=== PATIENT | female | born 1970 | race African-American/Black ===

== ENCOUNTER 2020-12-08 15:16 | Inpatient (IN) | payer OTHER, MEDICAID ==
[~2020-12-08] VITALS: Ht 160 cm; Wt 70.5 kg
[~2020-12-08 15:16] MED LIST: ALBUPOW26; FLUT100M7
[2020-12-08 16:22] LABS: Basophils # (auto) 0.1 10 ^3/uL (0-0.2); Eosinophils # (auto) 0.6 10 ^3/uL (0-0.8)
[2020-12-08 16:24] LABS: Basophils % (auto) 1.1 % (0.0-2.0); Eosinophils % (auto) 10.5 % (0.0-7.0); Hematocrit 22.1 % (36.0-46.0); Lymphocytes # (auto) 2.3 10 ^3/uL (0.4-5.4); Lymphocytes % (auto) 41.4 % (10.0-50.0); Mean Corpuscular Hemoglobin 16.3 pg (28.0-32.0); Mean Corpuscular Hgb Conc. 28.8 g/dL (32.0-36.0); Mean Corpuscular Volume 56.8 fL (80.0-100.0); Monocytes # (auto) 0.4 10 ^3/uL (0-1.3); Monocytes % (auto) 6.9 % (0.0-12.0); Neutrophils # (auto) 2.2 10 ^3/uL (1.6-8.6); Neutrophils % (auto) 40.1 % (37.0-80.0); White Blood Cell 5.6 10^3/uL (4.4-10.8)
[2020-12-08 16:26] LABS: Albumin 3.3 g/dL (3.4-5.0); Calcium 8.7 mg/dL (8.5-10.1); Potassium 3.7 mmol/L (3.5-5.1)
[2020-12-08 16:29] LABS: BUN/Creatinine Ratio 12.4; Bilirubin, Total 0.2 mg/dL (0.2-1.0); Total Protein 7.7 g/dL (6.4-8.2)
[2020-12-08 16:45] LABS: Red Cell Distribution Width 23.6 % (11.8-14.3)
[2020-12-08 16:46] LABS: Hemoglobin 6.4 g/dL (12.2-16.2)
[2020-12-08] MEDS ORDERED: MORPHINE SULFATE INJECTION 2 MG/ML SYRG IV PRN ×3 (18:30→20:00)
[2020-12-08] MEDS ORDERED: NITROGLYCERIN 0.4 MG SL TAB SL PRN ×2 (18:30→20:00)
[2020-12-08] MEDS ORDERED: SODIUM CHLORIDE 0.9% 1,000 ML IV ONE (20:00)
[2020-12-08] MEDS ORDERED: HYDROcodone-ACET 5/325MG TAB PO PRN (20:00)
[2020-12-08] MEDS ORDERED: PANTOPRAZOLE 40 MG/10 ML VIAL INJ IV ONE (20:00)
[2020-12-08] MEDS ORDERED: BUDESONIDE (INHALATION) 0.5 MG/2 ML NEB NEB ONE (20:00)
[2020-12-08] MEDS ORDERED: hydrOXYzine 25 MG TAB or CAP PO PRN (20:00)
[2020-12-08] MEDS ORDERED: ALBUTEROL SULF 2.5 MG/0.5ML(0.5%) NEB SOLN NEB ONE (20:00)
[2020-12-08] MEDS ORDERED: PROMETHAZINE-DM 5 ML ORAL SYRUP PO PRN (20:00)
[2020-12-08] MEDS ORDERED: cefTRIAXone 1GM/50ML D5W 50 ML IV ONE (20:00)
[2020-12-08] MEDS ORDERED: DOCUSATE SOD 100 MG CAP PO PRN (20:00)
[2020-12-08] MEDS ORDERED: AZITHROMYCIN 500MG/ 250ML 250 ML IV ONE (20:00)
[2020-12-08] MEDS ORDERED: ONDANSETRON HCL 4 MG/2 ML VIAL IV PRN (20:00)
[2020-12-08] MEDS ORDERED: SODIUM FERR GLUC 62.5MG/5ML 125 MG in SODIUM CHL 0.9% 100 ML IV ONE (20:00)
[2020-12-08] MEDS ORDERED: SUCRALFATE 1 GM/10 ML ORAL SUSP PO ONE (20:00)
[2020-12-08] MEDS ORDERED: PROMETHAZINE-DM 5 ML ORAL SYRUP PO ONE (20:00)
[2020-12-08] MEDS ORDERED: IPRATROPIUM BROM 0.5 MG/2.5ML INH SOL NEB ONE (20:00)
[2020-12-08 20:57] LABS: % Iron Saturation 3.1 % (15-50)
[2020-12-08 21:00] LABS: Magnesium 2.2 mg/dL (1.6-2.6); Phosphorus 4.7 mg/dL (2.5-4.90)
[2020-12-08 21:14] VITALS: BP 99/52
[2020-12-08 21:29] VITALS: BP 105/62
[2020-12-08] MEDS: PANTOPRAZOLE 40 MG/10 ML VIAL INJ IV SCH (21:50)
[2020-12-08] MEDS ORDERED: IPRATROPIUM BROM 0.5 MG/2.5ML INH SOL NEB SCH (22:00)
[2020-12-08] MEDS: ALBUTEROL SULF 2.5 MG/0.5ML(0.5%) NEB SOLN NEB PRN (22:13)
[2020-12-08] MEDS: BUDESONIDE (INHALATION) 0.5 MG/2 ML NEB NEB SCH (22:13)
[2020-12-08] MEDS: IPRATROPIUM BROM 0.5 MG/2.5ML INH SOL NEB PRN (22:13)
[2020-12-09] VITALS (13 sets, daily range): BP systolic 94–120; BP diastolic 43–75
[2020-12-09] MEDS: SODIUM CHLORIDE 0.9% 1,000 ML IV SCH ×2 (00:49→09:59)
[2020-12-09] MEDS: SUCRALFATE 1 GM/10 ML ORAL SUSP PO SCH ×5 (00:50→21:31)
[2020-12-09 02:03] LABS: Urine WBC None Seen /hpf (0 - 5)
[2020-12-09 02:24] LABS: Alcohol, Urine < 3.0 mg/dL (0-10); Amphetamine Screen, Urine NEGATIVE (NEGATIVE); Barbiturate Scree,Urine NEGATIVE (NEGATIVE); Benzodiazephine Screen, Urine NEGATIVE (NEGATIVE); Cannabinoid Screen, Urine NEGATIVE (NEGATIVE); Cocaine Screen, Urine NEGATIVE (NEGATIVE); Opiate Scree,Urine NEGATIVE (NEGATIVE); Phencyclidine Screen, Urine NEGATIVE (NEGATIVE)
[2020-12-09 02:27] LABS: Urine Bacteria NONE SEEN /hpf (None Seen); Urine Blood Negative /uL (Negative)
[2020-12-09] MEDS: LORazepam 0.5 MG TAB PO PRN ×2 (03:51→23:13)
[2020-12-09] MEDS: ACETAMINOPHEN 325 MG TAB PO PRN (03:51)
[2020-12-09] MEDS: BUDESONIDE (INHALATION) 0.5 MG/2 ML NEB NEB SCH ×2 (05:59→19:27)
[2020-12-09] MEDS: IPRATROPIUM BROM 0.5 MG/2.5ML INH SOL NEB PRN (05:59)
[2020-12-09] MEDS: ALBUTEROL SULF 2.5 MG/0.5ML(0.5%) NEB SOLN NEB PRN (05:59)
[2020-12-09] MEDS ORDERED: LORA-622 PO (06:15)
[2020-12-09 09:22] LABS: Hemoglobin 8.4 g/dL (12.2-16.2); White Blood Cell 5.7 10^3/uL (4.4-10.8)
[2020-12-09 09:23] LABS: Hematocrit 27.3 % (36.0-46.0); Mean Corpuscular Hemoglobin 20.1 pg (28.0-32.0); Mean Corpuscular Hgb Conc. 30.6 g/dL (32.0-36.0); Mean Corpuscular Volume 65.6 fL (80.0-100.0); Red Blood Cells 4.16 10^6/uL (4.0-5.20)
[2020-12-09 09:30] LABS: Red Cell Distribution Width 31.8 % (11.8-14.3)
[2020-12-09 09:31] LABS: Basophils % (manual) 0 (0.0-2.0); Blast Cells 0; Metamyelocytes % 0; Myelocytes % 0; Promyelocytes % 0; Reactive Lymphocytes 0
[2020-12-09 09:37] LABS: INR 1.01 (0.9-1.15); Partial Thromboplastin Time 32.2 sec (23.6-33.0)
[2020-12-09 09:40] LABS: Albumin 2.6 g/dL (3.4-5.0); Anion Gap 3 (5-15); Blood Urea Nitrogen 10 mg/dL (7-18); Calcium 7.8 mg/dL (8.5-10.1); Carbon Dioxide 26 mmol/L (21-32); Chloride 111 mmol/L (98-107); Glucose 80 mg/dL (74-106); Magnesium 2.4 mg/dL (1.6-2.6); Potassium 3.7 mmol/L (3.5-5.1); Sodium 140 mmol/L (136-145)
[2020-12-09 09:43] LABS: Alanine Aminotransferase 14 U/L (13-56); Alkaline Phosphatase 63 U/L (45-117); Aspartate Aminotransferase 10 U/L (15-37); BUN/Creatinine Ratio 14.7; Bilirubin, Total 0.3 mg/dL (0.2-1.0); GFR African American 118 mL/min; GFR Non-African American 98 mL/min; Phosphorus 3.6 mg/dL (2.5-4.90); Total Protein 6.3 g/dL (6.4-8.2)
[2020-12-09] MEDS: cefTRIAXone 1GM/50ML D5W 50 ML IV SCH (09:59)
[2020-12-09] MEDS: PANTOPRAZOLE 40 MG/10 ML VIAL INJ IV SCH ×2 (10:00→21:31)
[2020-12-09 11:02] LABS: Band Neutrophils % (manual) 1; Eosinophils % (manual) 9 (0-7); Lymphocytes % (manual) 26 (10.0-50.0); Monocytes % (manual) 10 (0-12)
[2020-12-09] MEDS ORDERED: IRON SUCROSE COMPLEX 200 MG in SODIUM CHL 0.9% 100 ML IV SCH (12:00)
[2020-12-09] MEDS: AZITHROMYCIN 500MG/ 250ML 250 ML IV SCH (12:12)
[2020-12-09] MEDS: SODIUM FERR GLUC 62.5MG/5ML 125 MG in SODIUM CHL 0.9% 100 ML IV SCH (15:50)
[2020-12-10] MEDS: LORazepam 0.5 MG TAB PO PRN (02:16)
[2020-12-10] MEDS: IPRATROPIUM BROM 0.5 MG/2.5ML INH SOL NEB PRN (02:16)
[2020-12-10] MEDS: SODIUM CHLORIDE 0.9% 1,000 ML IV SCH ×2 (04:40→12:00)
[2020-12-10 05:00] VITALS: BP 127/78
[2020-12-10] MEDS: SUCRALFATE 1 GM/10 ML ORAL SUSP PO SCH ×2 (06:08→11:40)
[2020-12-10] MEDS: BUDESONIDE (INHALATION) 0.5 MG/2 ML NEB NEB SCH ×2 (06:16→10:50)
[2020-12-10] MEDS: ALBUTEROL SULF 2.5 MG/0.5ML(0.5%) NEB SOLN NEB PRN (06:16)
[2020-12-10 09:00] VITALS: BP 126/93
[2020-12-10] MEDS: PANTOPRAZOLE 40 MG/10 ML VIAL INJ IV SCH (09:06)
[2020-12-10] MEDS: cefTRIAXone 1GM/50ML D5W 50 ML IV SCH (09:06)
[2020-12-10] MEDS: AZITHROMYCIN 500MG/ 250ML 250 ML IV SCH (09:50)
[2020-12-10] MEDS: ACETAMINOPHEN 325 MG TAB PO PRN (10:32)
[2020-12-10 11:08] LABS: Hemoglobin 9.2 g/dL (12.2-16.2); Mean Corpuscular Hemoglobin 20.2 pg (28.0-32.0); Mean Corpuscular Hgb Conc. 30.7 g/dL (32.0-36.0); Mean Corpuscular Volume 65.8 fL (80.0-100.0); Red Blood Cells 4.56 10^6/uL (4.0-5.20); Red Cell Distribution Width 32.4 % (11.8-14.3); White Blood Cell 7.9 10^3/uL (4.4-10.8)
[2020-12-10 11:11] LABS: Basophils % (manual) 0 (0.0-2.0); Blast Cells 0; Metamyelocytes % 0; Myelocytes % 0; Promyelocytes % 0; Reactive Lymphocytes 0
[2020-12-10 13:07] LABS: Band Neutrophils % (manual) 1; Eosinophils % (manual) 10 (0-7); Lymphocytes % (manual) 18 (10.0-50.0); Monocytes % (manual) 7 (0-12)
[2020-12-10 13:09] VITALS: BP 107/61
[2020-12-10] MEDS: SODIUM FERR GLUC 62.5MG/5ML 125 MG in SODIUM CHL 0.9% 100 ML IV SCH (13:43)
== END 2020-12-10 15:30 | disposition home or self-care (01) | DRG 760 ==
LOC: ER 15:16 → TELE 18:21 → TELE-CENTR 12-09 04:32
PROVIDERS: ADMIT Hospitalist; ATTEND Hospitalist
PROC: 30233N1 Transfusion of Nonautologous Red Blood Cells into Peripheral Vein, Percutaneous Approach (ICD-10-PCS; principal; 2020-12-08)
DX: N92.0 Excessive and frequent menstruation with regular cycle (principal); J18.9 Pneumonia, unspecified organism; J96.20 Acute and chronic respiratory failure, unspecified whether with hypoxia or hypercapnia; J44.0 Chronic obstructive pulmonary disease with (acute) lower respiratory infection; J45.901 Unspecified asthma with (acute) exacerbation; N39.0 Urinary tract infection, site not specified; D25.9 Leiomyoma of uterus, unspecified; Z20.822 Contact with and (suspected) exposure to COVID-19; D50.0 Iron deficiency anemia secondary to blood loss (chronic); Z83.3 Family history of diabetes mellitus; E88.09 Other disorders of plasma-protein metabolism, not elsewhere classified; F12.90 Cannabis use, unspecified, uncomplicated; F41.9 Anxiety disorder, unspecified; Z82.49 Family history of ischemic heart disease and other diseases of the circulatory system; J20.9 Acute bronchitis, unspecified; K21.9 Gastro-esophageal reflux disease without esophagitis; K29.70 Gastritis, unspecified, without bleeding; M25.572 Pain in left ankle and joints of left foot; R42 Dizziness and giddiness; R53.81 Other malaise; Z77.22 Contact with and (suspected) exposure to environmental tobacco smoke (acute) (chronic)
CPT/HCPCS: 36415; 36430; 71045; 73610; 76856; 80053; 80307; 81001; 81025; 83036; 83540; 83550; 83735; 83880; 84100; 84443; 84484; 85007; 85025; 85027; 85610; 85730; 86850; 86900; 86901; 86920; 87040; 87086; 87426; 93306; 94640; 99291; C9113; G0378; J0696; J1756

== ENCOUNTER → 2021-05-13 | Emergency (ER) | payer OTHER, MEDICAID ==
[~2021-05-13] VITALS: Ht 157.5 cm; Wt 68.0 kg
[~2021-05-13] MED LIST changes: +LORA-622 PO
[2021-05-13 15:38] VITALS: BP 103/42
[2021-05-13 17:01] LABS: Hematocrit 27.2 % (36.0-46.0); Hemoglobin 8.6 g/dL (12.2-16.2); Mean Corpuscular Hgb Conc. 31.5 g/dL (32.0-36.0); Mean Corpuscular Volume 63.3 fL (80.0-100.0); White Blood Cell 5.8 10^3/uL (4.4-10.8)
[2021-05-13 17:05] LABS: Red Cell Distribution Width 22.7 % (11.8-14.3)
[2021-05-13 17:07] LABS: Basophils % (manual) 0 (0.0-2.0); Blast Cells 0; Metamyelocytes % 0; Myelocytes % 0; Promyelocytes % 0
[2021-05-13 17:10] LABS: Albumin 3.3 g/dL (3.4-5.0); Calcium 9.1 mg/dL (8.5-10.1); Potassium 4.2 mmol/L (3.5-5.1)
[2021-05-13 17:12] LABS: BUN/Creatinine Ratio 17.1
[2021-05-13 17:15] LABS: Bilirubin, Total 0.1 mg/dL (0.2-1.0); Total Protein 7.4 g/dL (6.4-8.2)
[2021-05-13 17:28] LABS: Band Neutrophils % (manual) 1; Eosinophils % (manual) 5 (0-7); Lymphocytes % (manual) 38 (10.0-50.0); Monocytes % (manual) 3 (0-12); Reactive Lymphocytes 3
== END | disposition left against medical advice (07) ==
LOC: ER 15:35
DX: N93.9 Abnormal uterine and vaginal bleeding, unspecified (principal); Z53.21 Procedure and treatment not carried out due to patient leaving prior to being seen by health care provider
CPT/HCPCS: 36415; 80053; 84702; 85007; 85027

== ENCOUNTER 2022-11-13 13:58 | Inpatient (IN) | payer OTHER, MEDICAID ==
[~2022-11-13] VITALS: Ht 160 cm; Wt 74.7 kg
[2022-11-13] VITALS (11 sets, daily range): BP systolic 101–118; BP diastolic 34–68; PULSE 74–90; RESP 12–20; TEMP 98–98.9; O2SAT 95–100
[2022-11-13 14:34] LABS: White Blood Cell 5.8 10^3/uL (4.4-10.8)
[2022-11-13 14:36] LABS: Hematocrit 17.8 % (36.0-46.0); Mean Corpuscular Hemoglobin 16.7 pg (28.0-32.0); Mean Corpuscular Hgb Conc. 29.4 g/dL (32.0-36.0); Mean Corpuscular Volume 56.8 fL (80.0-100.0); Red Blood Cells 3.13 10^6/uL (4.0-5.20)
[2022-11-13 14:40] LABS: Red Cell Distribution Width 23.2 % (11.8-14.3)
[2022-11-13 14:43] LABS: Hemoglobin 5.2 g/dL (12.2-16.2); INR 0.99 (0.9-1.15); Partial Thromboplastin Time 28.8 SEC (24.5-34.5); Prothrombin Time 10.4 sec (9.3-11.8)
[2022-11-13 14:44] LABS: Band Neutrophils % (manual) 0; Basophils % (manual) 0 (0.0-2.0); Blast Cells 0; Metamyelocytes % 0; Myelocytes % 0; Promyelocytes % 0; Reactive Lymphocytes 0
[2022-11-13 14:51] LABS: Albumin 4.3 g/dL (3.2-4.8); Alkaline Phosphatase 82 U/L (46-116); Anion Gap 4 (5-15); Aspartate Aminotransferase < 8 U/L (13-40); BUN/Creatinine Ratio 11.8 (10.0-20.0); Blood Urea Nitrogen 11 mg/dL (9-23); Calcium 8.7 mg/dL (8.7-10.4); Carbon Dioxide 27 mmol/L (20-30); Chloride 106 mmol/L (98-107); Glucose 93 mg/dL (74-106); Magnesium 1.9 mg/dL (1.6-2.6); Potassium 3.6 mmol/L (3.5-5.1); Sodium 137 mmol/L (136-145)
[2022-11-13 14:52] LABS: Bilirubin, Total 0.3 mg/dL (0.2-1.0); Total Protein 7.1 g/dL (5.7-8.2)
[2022-11-13 15:04] LABS: Alanine Aminotransferase < 9 U/L (7-40)
[2022-11-13 15:51] LABS: Eosinophils % (manual) 16 (0-7); Lymphocytes % (manual) 26 (10.0-50.0); Monocytes % (manual) 4 (0-12); Platelet Estimate Increased
[2022-11-13 15:52] LABS: Anisocytosis Slight; Hypochromia Marked; Ovalocytes FEW; Tear Drop Cells FEW
[2022-11-13 18:10] LABS: Urine Bacteria NONE SEEN /hpf (None Seen); Urine Blood 1+ /uL (Negative); Urine Clarity Clear (Clear); Urine Color Yellow (Yellow); Urine Mucus FEW (None Seen); Urine Protein, UAD TRACE (Negative); Urine Specific Gravity 1.028 (1.001-1.035); Urine Urobilinogen Normal (Negative); Urine WBC 2 /hpf (0 - 5)
[2022-11-13] MEDS ORDERED: NITROGLYCERIN 0.4 MG SL TAB SL PRN (20:30)
[2022-11-13] MEDS ORDERED: ONDANSETRON HCL 4 MG/2 ML VIAL IV PRN (20:30)
[2022-11-13] MEDS ORDERED: MORPHINE SULFATE INJ 2 MG/ml SYRG IV PRN (20:30)
[2022-11-13] MEDS ORDERED: ACETAMINOPHEN 325 MG TAB PO PRN (20:30)
[2022-11-13] MEDS ORDERED: hydrALAZINE HCL 10 MG TAB PO PRN (20:30)
[2022-11-13] MEDS: SODIUM CHLORIDE 0.9% 1,000 ML IV SCH (21:04)
[2022-11-13] MEDS: ATORVASTATIN 20 MG TAB PO SCH (23:40)
[2022-11-14] VITALS (12 sets, daily range): BP systolic 100–117; BP diastolic 42–62; PULSE 63–77; RESP 16–20; TEMP 98–98.8; O2SAT 98–99
[2022-11-14] MEDS: SODIUM CHLORIDE 0.9% 1,000 ML IV SCH ×2 (01:33→17:00)
[2022-11-14] MEDS: HYDROcodone-ACET 5/325MG TAB PO PRN ×2 (07:58→19:21)
[2022-11-14 08:32] LABS: Chloride 111 mmol/L (98-107); Potassium 4.3 mmol/L (3.5-5.1); Sodium 141 mmol/L (136-145)
[2022-11-14 08:33] LABS: Anion Gap 5 (5-15); Carbon Dioxide 25 mmol/L (20-30)
[2022-11-14 08:38] LABS: BUN/Creatinine Ratio 17.3 (10.0-20.0); Blood Urea Nitrogen 13 mg/dL (9-23); Glucose 96 mg/dL (74-106); Triglycerides 43 mg/dL (< 150)
[2022-11-14 08:39] LABS: LDL Cholesterol 87 mg/dL (< 100)
[2022-11-14 08:40] LABS: Cholesterol 154 mg/dL (< 200); HDL Cholesterol 57 mg/dL (40-59)
[2022-11-14 08:41] LABS: Hemoglobin 7.7 g/dL (12.2-16.2); Mean Corpuscular Hgb Conc. 30.9 g/dL (32.0-36.0); White Blood Cell 6.1 10^3/uL (4.4-10.8)
[2022-11-14 08:43] LABS: Hematocrit 24.9 % (36.0-46.0); Mean Corpuscular Hemoglobin 20.4 pg (28.0-32.0); Red Blood Cells 3.77 10^6/uL (4.0-5.20); Red Cell Distribution Width 31.4 % (11.8-14.3)
[2022-11-14 08:47] LABS: Band Neutrophils % (manual) 0; Basophils % (manual) 0 (0.0-2.0); Blast Cells 0; Metamyelocytes % 0; Myelocytes % 0; Promyelocytes % 0; Reactive Lymphocytes 0
[2022-11-14 09:51] LABS: Eosinophils % (manual) 20 (0-7); Lymphocytes % (manual) 13 (10.0-50.0); Monocytes % (manual) 5 (0-12)
[2022-11-14 09:52] LABS: Anisocytosis Marked; Hypochromia Marked; Platelet Estimate Increased
[2022-11-14 10:53] LABS: Hepatitis B Surface Antigen Negative (Negative)
[2022-11-14 11:14] LABS: Hepatitis C Antibody Negative (Negative)
[2022-11-14 12:06] LABS: Hematocrit 23.1 % (36.0-46.0); Hemoglobin 7.2 g/dL (12.2-16.2); Mean Corpuscular Hemoglobin 20.5 pg (28.0-32.0); Mean Corpuscular Hgb Conc. 31.1 g/dL (32.0-36.0); Red Blood Cells 3.49 10^6/uL (4.0-5.20); White Blood Cell 5.5 10^3/uL (4.4-10.8)
[2022-11-14 12:07] LABS: Red Cell Distribution Width 31.2 % (11.8-14.3)
[2022-11-14 12:09] LABS: Band Neutrophils % (manual) 0; Basophils % (manual) 0 (0.0-2.0); Blast Cells 0; Metamyelocytes % 0; Myelocytes % 0; Promyelocytes % 0; Reactive Lymphocytes 0
[2022-11-14 12:34] LABS: Eosinophils % (manual) 8 (0-7); Lymphocytes % (manual) 16 (10.0-50.0); Monocytes % (manual) 6 (0-12)
[2022-11-14 12:35] LABS: Anisocytosis Marked; Hypochromia Marked; Platelet Estimate Increased
[2022-11-14 12:42] LABS: Ovalocytes MANY
[2022-11-14] MEDS ORDERED: ONDANSETRON HCL 4 MG/2 ML VIAL IV PRN (13:15)
[2022-11-14] MEDS ORDERED: SODIUM CHLORIDE 0.9% 1,000 ML IV SCH (13:15)
[2022-11-14 16:34] LABS: Eosinophils # (auto) 0.9 10 ^3/uL (0-0.8); Eosinophils % (auto) 13.2 % (0.0-7.0); Hemoglobin 7.9 g/dL (12.2-16.2); Mean Corpuscular Hemoglobin 20.2 pg (28.0-32.0); Monocytes # (auto) 0.4 10 ^3/uL (0-1.3); Nucleated Red Blood Cells % 0.1 %
[2022-11-14 16:36] LABS: Basophils # (auto) 0 10 ^3/uL (0-0.2); Basophils % (auto) 0.6 % (0.0-2.0); Lymphocytes # (auto) 2.6 10 ^3/uL (0.4-5.4); Lymphocytes % (auto) 37.8 % (10.0-50.0); Mean Corpuscular Hgb Conc. 30.5 g/dL (32.0-36.0); Mean Corpuscular Volume 66.4 fL (80.0-100.0); Monocytes % (auto) 5.8 % (0.0-12.0); Neutrophils # (auto) 2.9 10 ^3/uL (1.6-8.6); Neutrophils % (auto) 42.6 % (37.0-80.0); Red Blood Cells 3.92 10^6/uL (4.0-5.20); White Blood Cell 6.9 10^3/uL (4.4-10.8)
[2022-11-14 16:38] LABS: Red Cell Distribution Width 30.9 % (11.8-14.3)
[2022-11-14 16:51] LABS: INR 0.99 (0.9-1.15); Partial Thromboplastin Time 30.1 SEC (24.5-34.5); Prothrombin Time 10.4 sec (9.3-11.8)
[2022-11-14 17:18] LABS: Platelet Estimate Increased
[2022-11-14 17:19] LABS: Anisocytosis Moderate; Hypochromia Marked
[2022-11-14] MEDS: ATORVASTATIN 20 MG TAB PO SCH (21:52)
[2022-11-15] VITALS (9 sets, daily range): BP systolic 99–120; BP diastolic 51–64; PULSE 55–73; RESP 16–19; TEMP 97.8–98.4; O2SAT 95–100
[2022-11-15 02:35] LABS: Hemoglobin 9.5 g/dL (12.2-16.2)
[2022-11-15 02:37] LABS: Hematocrit 30.8 % (36.0-46.0)
[2022-11-15] MEDS: SODIUM CHLORIDE 0.9% 1,000 ML IV SCH ×3 (03:12→15:30)
[2022-11-15] MEDS ORDERED: ACETAMINOPHEN 500 MG TAB PO ONE (06:00)
[2022-11-15] MEDS ORDERED: CELECOXIB 100 MG CAP PO ONE (06:00)
[2022-11-15] MEDS ORDERED: GABAPENTIN 300 MG CAP PO ONE (06:00)
[2022-11-15] MEDS ORDERED: ceFAZolin 2 GM/D5W100ml 100 ML IV ONE (07:00)
[2022-11-15] MEDS ORDERED: FAMOTIDINE (10MG/ML) 2ML VL IV ONE ×2 (07:20→07:30)
[2022-11-15] MEDS ORDERED: ceFAZolin 1GM/50ML 100 ML IV ONE (07:25)
[2022-11-15] MEDS ORDERED: HYDR-4902 PO (07:26)
[2022-11-15] MEDS ORDERED: DOCU-94 PO (07:26)
[2022-11-15] MEDS ORDERED: IBUP-1455 PO (07:26)
[2022-11-15] MEDS ORDERED: MIDAZOLAM HCL 2MG/2ML 2ml VIAL (1mg/ml) ONE (07:30)
[2022-11-15] MEDS ORDERED: ONDANSETRON HCL 4 MG/2 ML VIAL IV PRN ×2 (07:30→10:15)
[2022-11-15] MEDS ORDERED: MORPHINE SULFATE INJ 2 MG/ml SYRG IV PRN (07:30)
[2022-11-15] MEDS ORDERED: fentaNYL CITRATE 100 MCG/2 ML VL ONE (07:30)
[2022-11-15] MEDS ORDERED: NITROGLYCERIN 0.4 MG SL TAB SL PRN (07:30)
[2022-11-15] MEDS ORDERED: HYDROmorphone HCL 2 MG/ML VL/or syr ONE (07:30)
[2022-11-15] MEDS ORDERED: ACETAMINOPHEN 500 MG TAB PO PRN (07:30)
[2022-11-15] MEDS ORDERED: ePHEDrine SULFATE 50 MG/ML AMP ONE (07:31)
[2022-11-15] MEDS ORDERED: HYDROCORTISONE SOD SUCC 100 MG/2ML INJ VIAL ONE (07:31)
[2022-11-15] MEDS ORDERED: LIDOCAINE 2% (LOCAL ANESTH.) PF 5ml SDV ONE (07:31)
[2022-11-15] MEDS ORDERED: KETOROLAC TROMETH 30 MG/ML 1ML VIAL ONE (07:31)
[2022-11-15] MEDS ORDERED: GLYCOPYRROLATE 0.2 MG/ML 1ML VIAL ONE (07:31)
[2022-11-15] MEDS ORDERED: ROCURONIUM 10MG/ML 10ML VIAL IV ONE (07:31)
[2022-11-15] MEDS ORDERED: ONDANSETRON HCL 4 MG/2 ML VIAL ONE (07:31)
[2022-11-15] MEDS ORDERED: MEPERIDINE HCL (25 MG/ML) 1ML VIAL ONE (09:43)
[2022-11-15] MEDS ORDERED: HYDROmorphone HCL 2 MG/ML VL/or syr IV PRN (10:15)
[2022-11-15] MEDS: ACYCLOVIR 400 MG TAB PO SCH ×3 (11:00→22:10)
[2022-11-15] MEDS: HYDROmorphone HCL 2 MG/ML VL/or syr IV PRN ×2 (14:18→20:30)
[2022-11-15 14:27] LABS: Eosinophils # (auto) 0 10 ^3/uL (0-0.8); Monocytes # (auto) 0.7 10 ^3/uL (0-1.3); Monocytes % (auto) 3.8 % (0.0-12.0)
[2022-11-15 14:28] LABS: Basophils # (auto) 0.1 10 ^3/uL (0-0.2); Basophils % (auto) 0.4 % (0.0-2.0); Eosinophils % (auto) 0.1 % (0.0-7.0); Hematocrit 31.2 % (36.0-46.0); Hemoglobin 9.5 g/dL (12.2-16.2); Lymphocytes # (auto) 1.4 10 ^3/uL (0.4-5.4); Lymphocytes % (auto) 7.7 % (10.0-50.0); Mean Corpuscular Hemoglobin 21.7 pg (28.0-32.0); Mean Corpuscular Hgb Conc. 30.6 g/dL (32.0-36.0); Mean Corpuscular Volume 70.8 fL (80.0-100.0); Neutrophils # (auto) 15.5 10 ^3/uL (1.6-8.6); White Blood Cell 17.6 10^3/uL (4.4-10.8)
[2022-11-15] MEDS: ceFAZolin 1GM/50ML 50 ML IV SCH ×2 (14:28→22:09)
[2022-11-15 14:32] LABS: Red Cell Distribution Width 30.7 % (11.8-14.3)
[2022-11-15] MEDS ORDERED: KETAMINE 50mg/ML 10ml Vial (500mg/10ml) IV ONE (14:39)
[2022-11-15 14:48] LABS: Alanine Aminotransferase 12 U/L (7-40); Albumin 3.5 g/dL (3.2-4.8); Alkaline Phosphatase 61 U/L (46-116); Anion Gap 7 (5-15); Aspartate Aminotransferase 13 U/L (13-40); BUN/Creatinine Ratio 14.3 (10.0-20.0); Bilirubin, Total 0.4 mg/dL (0.2-1.0); Blood Urea Nitrogen 11 mg/dL (9-23); Calcium 8.3 mg/dL (8.5-10.1); Carbon Dioxide 23 mmol/L (20-30); Chloride 108 mmol/L (98-107); Glucose 113 mg/dL (74-106); Potassium 4.2 mmol/L (3.5-5.1); Sodium 138 mmol/L (136-145); Total Protein 5.8 g/dL (5.7-8.2)
[2022-11-15 15:20] LABS: Anisocytosis Moderate; Hypochromia Moderate; Platelet Estimate Increased
[2022-11-15] MEDS: HYDROcodone-ACET 5/325MG TAB PO PRN (18:44)
[2022-11-15] MEDS: ATORVASTATIN 20 MG TAB PO SCH (22:10)
[2022-11-15 22:50] LABS: Mean Corpuscular Volume 69.9 fL (80.0-100.0)
[2022-11-15 22:52] LABS: Mean Corpuscular Hemoglobin 21.7 pg (28.0-32.0); Mean Corpuscular Hgb Conc. 31.1 g/dL (32.0-36.0); Red Blood Cells 4.15 10^6/uL (4.0-5.20); White Blood Cell 13.6 10^3/uL (4.4-10.8)
[2022-11-15 23:00] LABS: Red Cell Distribution Width 30.7 % (11.8-14.3)
[2022-11-15 23:02] LABS: Band Neutrophils % (manual) 0; Basophils % (manual) 0 (0.0-2.0); Blast Cells 0; Eosinophils % (manual) 0 (0-7); Metamyelocytes % 0; Myelocytes % 0; Promyelocytes % 0; Reactive Lymphocytes 0
[2022-11-15 23:10] LABS: Lymphocytes % (manual) 12 (10.0-50.0); Monocytes % (manual) 5 (0-12)
[2022-11-15 23:11] LABS: Anisocytosis Moderate; Hypochromia Moderate
[2022-11-15 23:13] LABS: Platelet Estimate Increa
[2022-11-16] VITALS (7 sets, daily range): BP systolic 112–138; BP diastolic 49–69; PULSE 65–77; RESP 16–19; TEMP 98.6–99.7; O2SAT 93–98
[2022-11-16] MEDS: HYDROmorphone HCL 2 MG/ML VL/or syr IV PRN ×3 (03:30→12:29)
[2022-11-16] MEDS: SODIUM CHLORIDE 0.9% 1,000 ML IV SCH ×4 (03:31→23:30)
[2022-11-16 05:20] LABS: Hematocrit 28.2 % (36.0-46.0); Mean Corpuscular Hemoglobin 22.2 pg (28.0-32.0); Mean Corpuscular Hgb Conc. 31.8 g/dL (32.0-36.0); Red Blood Cells 4.03 10^6/uL (4.0-5.20); White Blood Cell 9.3 10^3/uL (4.4-10.8)
[2022-11-16 05:30] LABS: Red Cell Distribution Width 31.5 % (11.8-14.3)
[2022-11-16 05:32] LABS: Band Neutrophils % (manual) 0; Basophils % (manual) 0 (0.0-2.0); Blast Cells 0; Metamyelocytes % 0; Myelocytes % 0; Promyelocytes % 0; Reactive Lymphocytes 0
[2022-11-16] MEDS: ceFAZolin 1GM/50ML 50 ML IV SCH (05:32)
[2022-11-16] MEDS: ACYCLOVIR 400 MG TAB PO SCH ×3 (05:33→21:38)
[2022-11-16 08:27] LABS: Anisocytosis Marked; Eosinophils % (manual) 2 (0-7); Hypochromia Moderate; Lymphocytes % (manual) 19 (10.0-50.0); Monocytes % (manual) 2 (0-12); Platelet Estimate Increased
[2022-11-16] MEDS ORDERED: BISACODYL 10 MG RECT SUPP PR PRN ×2 (09:15→09:30)
[2022-11-16] MEDS ORDERED: DOCUSATE SOD 100 MG CAP PO SCH (10:00)
[2022-11-16] MEDS: DOCUSATE CALCIUM 240 MG CAP PO SCH (11:27)
[2022-11-16] MEDS: HYDROcodone-ACET 10/325MG TAB PO PRN (11:30)
[2022-11-16] MEDS: SIMETHICONE 80 MG CHEWABLE TABLET PO SCH ×3 (12:20→21:39)
[2022-11-16] MEDS: KETOROLAC TROMETH 30 MG/ML 1ML VIAL IV PRN (17:29)
[2022-11-16] MEDS: DOCUSATE SOD 100 MG CAP PO PRN (21:39)
[2022-11-16] MEDS: ATORVASTATIN 20 MG TAB PO SCH (21:39)
[2022-11-17] VITALS (12 sets, daily range): BP systolic 129–137; BP diastolic 63–73; PULSE 68–85; RESP 16–19; TEMP 98.7–99.8; O2SAT 94–100
[2022-11-17] MEDS: KETOROLAC TROMETH 30 MG/ML 1ML VIAL IV PRN ×4 (01:05→20:33)
[2022-11-17] MEDS: SODIUM CHLORIDE 0.9% 1,000 ML IV SCH ×2 (01:09→15:30)
[2022-11-17] MEDS: SIMETHICONE 80 MG CHEWABLE TABLET PO SCH ×4 (06:04→21:48)
[2022-11-17] MEDS: ACYCLOVIR 400 MG TAB PO SCH ×3 (06:04→21:48)
[2022-11-17] MEDS ORDERED: ALBUTEROL SULF 2.5 MG/0.5ML(0.5%) NEB SOLN NEB PRN (06:30)
[2022-11-17] MEDS: DOCUSATE CALCIUM 240 MG CAP PO SCH (10:11)
[2022-11-17] MEDS: HYDROcodone-ACET 10/325MG TAB PO PRN (18:09)
[2022-11-17] MEDS: DOCUSATE SOD 100 MG CAP PO PRN (18:15)
[2022-11-17] MEDS: ATORVASTATIN 20 MG TAB PO SCH (21:48)
[2022-11-18] MEDS: SODIUM CHLORIDE 0.9% 1,000 ML IV SCH (00:09)
[2022-11-18] MEDS: KETOROLAC TROMETH 30 MG/ML 1ML VIAL IV PRN ×2 (02:49→13:08)
[2022-11-18 05:00] VITALS: BP 134/64; PULSE 81; RESP 16; TEMP 99.3; O2SAT 95
[2022-11-18] MEDS: SIMETHICONE 80 MG CHEWABLE TABLET PO SCH ×2 (05:55→12:00)
[2022-11-18] MEDS: ACYCLOVIR 400 MG TAB PO SCH ×2 (05:56→14:00)
[2022-11-18] MEDS: DOCUSATE SOD 100 MG CAP PO PRN (06:05)
[2022-11-18 07:42] VITALS: O2SAT 96
[2022-11-18 07:43] VITALS: O2SAT 96
[2022-11-18 08:00] VITALS: PULSE 71
[2022-11-18 09:24] VITALS: BP 144/71; PULSE 68; RESP 16; TEMP 99; O2SAT 96
[2022-11-18 09:40] VITALS: BP 144/77; PULSE 68; RESP 17; TEMP 99; O2SAT 96
[2022-11-18] MEDS: DOCUSATE CALCIUM 240 MG CAP PO SCH (10:03)
== END 2022-11-18 14:40 | disposition home or self-care (01) | DRG 742 ==
LOC: ER 13:58 → TELE 20:32 → TELE-EAST 22:10
PROVIDERS: ADMIT Nurse Practitioner Family; ATTEND Nurse Practitioner Family
PROC: 30233N1 Transfusion of Nonautologous Red Blood Cells into Peripheral Vein, Percutaneous Approach (ICD-10-PCS; 2022-11-13)
PROC: 0UT90ZZ Resection of Uterus, Open Approach (ICD-10-PCS; 2022-11-15)
PROC: 0UT70ZZ Resection of Bilateral Fallopian Tubes, Open Approach (ICD-10-PCS; principal; 2022-11-15 07:49)
DX: N92.0 Excessive and frequent menstruation with regular cycle (principal); D62 Acute posthemorrhagic anemia; D25.9 Leiomyoma of uterus, unspecified; J44.9 Chronic obstructive pulmonary disease, unspecified; R07.89 Other chest pain; Z82.49 Family history of ischemic heart disease and other diseases of the circulatory system; Z83.3 Family history of diabetes mellitus; Z90.710 Acquired absence of both cervix and uterus
CPT/HCPCS: 36415; 71045; 76856; 80048; 80053; 80061; 81001; 83735; 83880; 84484; 84702; 85007; 85014; 85018; 85025; 85027; 85610; 85730; 86803; 86850; 86900; 86901; 86920; 87340; 93005; 93306; 94640; 97163; 99291; G0378; J0690; J1885; J2001; J2250; J2405; J3490

== ENCOUNTER 2022-11-22 11:24 | Inpatient (IN) | payer OTHER, MEDICAID ==
[~2022-11-22] VITALS: Ht 160 cm; Wt 64.5 kg
[~2022-11-22 11:24] MED LIST changes: +DOCU-94 PO; +HYDR-4902 PO; +IBUP-1455 PO
[2022-11-22] MEDS ORDERED: OMNIPAQUE 12mg/ml 500ml ORAL SOLUTION PO ONE (11:44)
[2022-11-22 12:19] LABS: Basophils # (auto) 0.1 10 ^3/uL (0-0.2); Basophils % (auto) 0.5 % (0.0-2.0); Eosinophils # (auto) 0.7 10 ^3/uL (0-0.8); Hematocrit 29.5 % (36.0-46.0); Hemoglobin 9.2 g/dL (12.2-16.2); Lymphocytes # (auto) 1.7 10 ^3/uL (0.4-5.4); Lymphocytes % (auto) 12.4 % (10.0-50.0); Mean Corpuscular Hemoglobin 21.9 pg (28.0-32.0); Mean Corpuscular Hgb Conc. 31.1 g/dL (32.0-36.0); Mean Corpuscular Volume 70.2 fL (80.0-100.0); Monocytes # (auto) 0.9 10 ^3/uL (0-1.3); Monocytes % (auto) 6.6 % (0.0-12.0); Neutrophils # (auto) 10.4 10 ^3/uL (1.6-8.6); Neutrophils % (auto) 75.5 % (37.0-80.0); Nucleated Red Blood Cells % 0.1 %; White Blood Cell 13.7 10^3/uL (4.4-10.8)
[2022-11-22 12:20] LABS: Red Cell Distribution Width 30.5 % (11.8-14.3)
[2022-11-22 12:35] LABS: Albumin 3.8 g/dL (3.2-4.8); Alkaline Phosphatase 97 U/L (46-116); Anion Gap 9 (5-15); Aspartate Aminotransferase 21 U/L (13-40); Calcium 8.7 mg/dL (8.5-10.1); Carbon Dioxide 27 mmol/L (20-30); Chloride 101 mmol/L (98-107); Glucose 82 mg/dL (74-106); Potassium 3.8 mmol/L (3.5-5.1); Sodium 137 mmol/L (136-145)
[2022-11-22 12:36] LABS: Bilirubin, Total 0.4 mg/dL (0.2-1.0); Total Protein 6.7 g/dL (5.7-8.2)
[2022-11-22 12:43] LABS: Alanine Aminotransferase < 9 U/L (7-40); BUN/Creatinine Ratio 8.9 (10.0-20.0); Blood Urea Nitrogen < 5 mg/dL (9-23)
[2022-11-22 13:19] LABS: Platelet Estimate Increased
[2022-11-22 13:21] LABS: Hypochromia Moderate
[2022-11-22 13:22] LABS: Anisocytosis Marked; Ovalocytes FEW
[2022-11-22] MEDS ORDERED: IOHEXOL 300 MG/ML 100ML BOTTLE IJ ONE (14:08)
[2022-11-22] MEDS ORDERED: CLINDAMYCIN HCL 150 MG CAP PO ONE (16:15)
[2022-11-22] MEDS ORDERED: cefTRIAXone 1GM/50ML D5W 50 ML IV ONE (16:15)
[2022-11-22] MEDS ORDERED: ONDANSETRON HCL 4 MG/2 ML VIAL IV PRN (17:00)
[2022-11-22] MEDS ORDERED: IBUPROFEN 800 MG TAB PO PRN (17:00)
[2022-11-22] MEDS ORDERED: ACETAMINOPHEN 500 MG TAB PO PRN (17:00)
[2022-11-22] MEDS: PIPERACILLIN-TAZOB 3.375GM 100 ML IV SCH ×2 (18:34→23:43)
[2022-11-22 18:43] VITALS: PULSE 71; RESP 16; O2SAT 96
[2022-11-22 19:35] VITALS: PULSE 84; RESP 20; O2SAT 90
[2022-11-22] MEDS: DOCUSATE SOD 100 MG CAP PO SCH (21:43)
[2022-11-22] MEDS: LACTATED RINGER'S 1,000 ML IV SCH (21:52)
[2022-11-22] MEDS: HYDROcodone-ACET 5/325MG TAB PO PRN (23:47)
[2022-11-23 05:02] VITALS: BP 157/70; PULSE 61; RESP 16; TEMP 99; O2SAT 95
[2022-11-23] MEDS: MILK OF MAGNESIA 30ML SUSP PO SCH ×2 (05:45→10:18)
[2022-11-23] MEDS: PIPERACILLIN-TAZOB 3.375GM 100 ML IV SCH ×4 (05:46→23:56)
[2022-11-23] MEDS: HYDROcodone-ACET 5/325MG TAB PO PRN ×2 (05:48→18:15)
[2022-11-23 06:07] LABS: Basophils # (auto) 0.1 10 ^3/uL (0-0.2); Eosinophils # (auto) 0.7 10 ^3/uL (0-0.8); Neutrophils # (auto) 10.9 10 ^3/uL (1.6-8.6); Neutrophils % (auto) 75.6 % (37.0-80.0); Nucleated Red Blood Cells % 0.1 %; White Blood Cell 14.4 10^3/uL (4.4-10.8)
[2022-11-23 06:12] LABS: Eosinophils % (auto) 5.2 % (0.0-7.0); Hematocrit 27.9 % (36.0-46.0); Lymphocytes # (auto) 1.6 10 ^3/uL (0.4-5.4); Lymphocytes % (auto) 10.8 % (10.0-50.0); Mean Corpuscular Hemoglobin 22.2 pg (28.0-32.0); Mean Corpuscular Hgb Conc. 32.2 g/dL (32.0-36.0); Mean Corpuscular Volume 68.9 fL (80.0-100.0); Monocytes # (auto) 1.1 10 ^3/uL (0-1.3); Monocytes % (auto) 7.4 % (0.0-12.0); Red Blood Cells 4.05 10^6/uL (4.0-5.20)
[2022-11-23 06:40] LABS: Red Cell Distribution Width 30.8 % (11.8-14.3)
[2022-11-23 06:45] LABS: INR 1.1 (0.9-1.15); Partial Thromboplastin Time 40.2 SEC (24.5-34.5); Prothrombin Time 11.5 sec (9.3-11.8)
[2022-11-23] MEDS: OXYBUTYNIN CHL 5 MG TAB PO SCH ×3 (07:59→22:59)
[2022-11-23 09:00] VITALS: BP 124/71; PULSE 62; RESP 17; TEMP 97.7; O2SAT 96
[2022-11-23] MEDS: DOCUSATE SOD 100 MG CAP PO SCH ×2 (10:18→22:00)
[2022-11-23 13:00] VITALS: BP 129/66; PULSE 58; RESP 19; TEMP 98.2; O2SAT 95
[2022-11-23 17:00] VITALS: BP 115/57; PULSE 64; RESP 18; TEMP 97.9; O2SAT 95
[2022-11-23] MEDS: LACTATED RINGER'S 1,000 ML IV SCH (18:05)
[2022-11-23 20:00] VITALS: BP 109/49; PULSE 72; RESP 17; TEMP 98.4; O2SAT 92
[2022-11-23 22:00] VITALS: BP 93/51; PULSE 72; RESP 17; TEMP 98.4; O2SAT 94
[2022-11-24] MEDS: HYDROmorphone HCL 2 MG/ML VL/or syr IV PRN (00:18)
[2022-11-24 05:00] VITALS: BP 105/59; PULSE 51; RESP 17; TEMP 98.2; O2SAT 95
[2022-11-24] MEDS: PIPERACILLIN-TAZOB 3.375GM 100 ML IV SCH ×4 (05:44→23:36)
[2022-11-24] MEDS: LACTATED RINGER'S 1,000 ML IV SCH ×2 (06:48→19:00)
[2022-11-24 09:00] VITALS: BP 94/51; PULSE 69; RESP 18; TEMP 97.1; O2SAT 93
[2022-11-24] MEDS: OXYBUTYNIN CHL 5 MG TAB PO SCH ×2 (09:48→22:27)
[2022-11-24] MEDS: DOCUSATE SOD 100 MG CAP PO SCH ×2 (09:48→22:27)
[2022-11-24] MEDS: MILK OF MAGNESIA 30ML SUSP PO SCH (09:49)
[2022-11-24 13:00] VITALS: BP 105/46; PULSE 52; RESP 18; TEMP 98.6; O2SAT 96
[2022-11-24] MEDS: HYDROcodone-ACET 5/325MG TAB PO PRN ×2 (16:30→22:27)
[2022-11-24 17:00] VITALS: BP 110/56; PULSE 56; RESP 18; TEMP 98.2; O2SAT 97
[2022-11-24 20:00] VITALS: BP 110/59; PULSE 60; RESP 18; TEMP 98.8; O2SAT 97
[2022-11-25] VITALS (7 sets, daily range): BP systolic 106–117; BP diastolic 46–68; PULSE 50–60; RESP 18; TEMP 97.3–99.3; O2SAT 94–99
[2022-11-25] MEDS: HYDROcodone-ACET 5/325MG TAB PO PRN ×2 (06:03→23:57)
[2022-11-25] MEDS: PIPERACILLIN-TAZOB 3.375GM 100 ML IV SCH ×4 (06:03→23:57)
[2022-11-25] MEDS: LACTATED RINGER'S 1,000 ML IV SCH ×2 (07:30→20:17)
[2022-11-25] MEDS: OXYBUTYNIN CHL 5 MG TAB PO SCH ×2 (10:00→22:43)
[2022-11-25] MEDS: DOCUSATE SOD 100 MG CAP PO SCH ×2 (10:00→22:43)
[2022-11-25] MEDS: MILK OF MAGNESIA 30ML SUSP PO SCH (10:00)
[2022-11-25] MEDS ORDERED: LIDOCAINE 2%HCL (LOCAL ANESTH.) INJ 10ml MDV ONE (10:06)
[2022-11-25] MEDS ORDERED: MIDAZOLAM HCL 2MG/2ML 2ml VIAL (1mg/ml) ONE (10:34)
[2022-11-25] MEDS ORDERED: fentaNYL CITRATE 100 MCG/2 ML VL ONE (10:35)
[2022-11-25] MEDS ORDERED: fentaNYL CITRATE 100 MCG/2 ML VL IV ONE (10:45)
[2022-11-25] MEDS ORDERED: MIDAZOLAM HCL 2MG/2ML 2ml VIAL (1mg/ml) IV ONE (10:45)
[2022-11-25] MEDS: HYDROmorphone HCL 2 MG/ML VL/or syr IV PRN (12:42)
[2022-11-25 13:02] LABS: Basophils # (auto) 0.1 10 ^3/uL (0-0.2); Eosinophils # (auto) 1.1 10 ^3/uL (0-0.8)
[2022-11-25 13:05] LABS: Basophils % (auto) 0.5 % (0.0-2.0); Eosinophils % (auto) 10.6 % (0.0-7.0); Hematocrit 28.8 % (36.0-46.0); Hemoglobin 9.2 g/dL (12.2-16.2); Lymphocytes # (auto) 1.9 10 ^3/uL (0.4-5.4); Lymphocytes % (auto) 17.6 % (10.0-50.0); Mean Corpuscular Hemoglobin 22.3 pg (28.0-32.0); Mean Corpuscular Volume 69.6 fL (80.0-100.0); Monocytes # (auto) 0.5 10 ^3/uL (0-1.3); Monocytes % (auto) 4.7 % (0.0-12.0); Neutrophils # (auto) 7.1 10 ^3/uL (1.6-8.6); Neutrophils % (auto) 66.6 % (37.0-80.0); Red Blood Cells 4.14 10^6/uL (4.0-5.20); White Blood Cell 10.6 10^3/uL (4.4-10.8)
[2022-11-25 13:13] LABS: Red Cell Distribution Width 30.6 % (11.8-14.3)
[2022-11-25 13:16] LABS: INR 1.03 (0.9-1.15); Partial Thromboplastin Time 35.6 SEC (24.5-34.5); Prothrombin Time 10.8 sec (9.3-11.8)
[2022-11-25 13:30] LABS: Albumin 3.6 g/dL (3.2-4.8); Alkaline Phosphatase 79 U/L (46-116); Anion Gap 7 (5-15); Aspartate Aminotransferase 11 U/L (13-40); Calcium 8.8 mg/dL (8.5-10.1); Carbon Dioxide 29 mmol/L (20-30); Chloride 102 mmol/L (98-107); Glucose 81 mg/dL (74-106); Potassium 3.9 mmol/L (3.5-5.1); Sodium 138 mmol/L (136-145)
[2022-11-25 13:31] LABS: Bilirubin, Total 0.2 mg/dL (0.2-1.0); Total Protein 6.7 g/dL (5.7-8.2)
[2022-11-25 13:35] LABS: Alanine Aminotransferase < 9 U/L (7-40); BUN/Creatinine Ratio 6.8 (10.0-20.0); Blood Urea Nitrogen < 5 mg/dL (9-23)
[2022-11-25] MEDS ORDERED: IOTHALAMATE MEGLUMINE INJ 250ML BOT UR ONE (13:38)
[2022-11-25 13:47] LABS: Anisocytosis Marked; Hypochromia Moderate; Ovalocytes FEW; Platelet Estimate Increased
[2022-11-25 14:48] LABS: Urine Bacteria NONE SEEN /hpf (None Seen); Urine Blood TRACE /uL (Negative); Urine Clarity Clear (Clear); Urine Protein, UAD Negative (Negative); Urine Specific Gravity 1.043 (1.001-1.035); Urine Urobilinogen Normal (Negative); Urine WBC 1 /hpf (0 - 5); Urine pH 7.5 (5.0-8.0)
[2022-11-25 14:50] LABS: Urine Color Yellow (Yellow)
[2022-11-25] MEDS ORDERED: diphenhdrAMINE HCL 25 MG CAP PO PRN (20:45)
[2022-11-25] MEDS ORDERED: MELATONIN 5 MG TAB PO SCH (22:45)
[2022-11-26 05:14] VITALS: BP 113/48; PULSE 42; RESP 18; TEMP 98; O2SAT 95
[2022-11-26] MEDS: PIPERACILLIN-TAZOB 3.375GM 100 ML IV SCH ×2 (06:37→11:46)
[2022-11-26] MEDS ORDERED: OXYB5TAB10 PO (07:07)
[2022-11-26] MEDS ORDERED: DIPH25CA51 PO (07:07)
[2022-11-26] MEDS ORDERED: METR-344 PO (07:08)
[2022-11-26] MEDS ORDERED: LEVO750T8 PO (07:08)
[2022-11-26] MEDS: LACTATED RINGER'S 1,000 ML IV SCH (08:30)
[2022-11-26 08:58] VITALS: BP 126/62; PULSE 57; RESP 18; TEMP 98.4; O2SAT 96
[2022-11-26] MEDS: OXYBUTYNIN CHL 5 MG TAB PO SCH (09:10)
[2022-11-26] MEDS: DOCUSATE SOD 100 MG CAP PO SCH (09:10)
[2022-11-26] MEDS: MILK OF MAGNESIA 30ML SUSP PO SCH (09:12)
== END 2022-11-26 12:32 | disposition home or self-care (01) | DRG 863 ==
LOC: ER 11:24 → OVERFLOW 17:10 → CENTRAL 21:00
PROVIDERS: ADMIT Obstetrics & Gynecology; ATTEND Obstetrics & Gynecology
DX: T81.43XA Infection following a procedure, organ and space surgical site, initial encounter (principal); J45.909 Unspecified asthma, uncomplicated; Y83.8 Other surgical procedures as the cause of abnormal reaction of the patient, or of later complication, without mention of misadventure at the time of the procedure; R32 Unspecified urinary incontinence; Z90.710 Acquired absence of both cervix and uterus; Z83.3 Family history of diabetes mellitus; Z88.8 Allergy status to other drugs, medicaments and biological substances; Z82.49 Family history of ischemic heart disease and other diseases of the circulatory system; Y92.89 Other specified places as the place of occurrence of the external cause; E11.9 Type 2 diabetes mellitus without complications
CPT/HCPCS: 10005; 36415; 72192; 74177; 77012; 80053; 81001; 83605; 85025; 85610; 85730; 87040; 96365; G0378; J0696; J2001; J2250; J2405; J2543

== ENCOUNTER 2024-11-26 13:02 | Emergency (ER) | payer OTHER, MEDICAID ==
[~2024-11-26] VITALS: Ht 160 cm; Wt 76.8 kg
[~2024-11-26 13:02] MED LIST changes: +DIPH25CA51 PO; -FLUT100M7; +LEVO750T8 PO; -LORA-622 PO; +METR-344 PO; +OXYB5TAB14 PO
[2024-11-26] MEDS ORDERED: FLUT250M2 INH (14:23)
[2024-11-26] MEDS ORDERED: PRED20TA2 PO (14:23)
[2024-11-26 14:24] VITALS: BP 145/79; PULSE 98; RESP 16; TEMP 99.1; O2SAT 97
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
[2024-11-26] MEDS: methylPREDNISolone SOD SUCC 125 MG/2 ML VL IM ONE (14:38)
== END 2024-11-26 14:43 | disposition home or self-care (01) ==
LOC: ER 13:02
DX: J45.909 Unspecified asthma, uncomplicated (principal); Z76.0 Encounter for issue of repeat prescription; Z90.710 Acquired absence of both cervix and uterus; Z86.018 Personal history of other benign neoplasm; Z79.52 Long term (current) use of systemic steroids; Z79.51 Long term (current) use of inhaled steroids; Z79.899 Other long term (current) drug therapy
CPT/HCPCS: 96372; 99283; J2919